=== PATIENT | female | born 1995 | race Caucasian/White ===

== ENCOUNTER 2025-05-27 19:13 | Inpatient (IN) | payer MEDICARE, SELFPAY ==
[2025-05-27] VITALS (10 sets, daily range): BP systolic 108–144; BP diastolic 70–98; BMI 18.7
[2025-05-27 15:29] LABS: Glucose - Point of Care 361 mg/dl (70-99)
[2025-05-27] MEDS: ZOFRAN 4 MG IV ×2 (16:34→17:34)
[2025-05-27 16:45] LABS: Venous Blood Gas B.E. -24.7 mmol/L (-4 to +4); Venous Blood Gas O2 Sat % 56.4 %
[2025-05-27 16:46] LABS: Hematocrit 45.4 % (37.0-47.0); Hemoglobin 15.2 g/dL (12.0-16.0); Mean Corp Hgb Conc. 33.5 g/dL (33.0-37.0); Mean Corpuscular Volume 99.1 fL (81.0-99.0); Nucleated Red Blood Cells % 0 %; Platelet Count 323 10^3/uL (130-400); Red Cell Dist. Width 12.7 % (11.5-14.5)
[2025-05-27] MEDS: NSS 1000 IV ×2 (16:46→17:52)
[2025-05-27 17:00] LABS: HCG, Serum Qualitative Screen Negative
[2025-05-27 17:13] LABS: ALT (SGPT) 50 U/L (0-35); AST (SGOT) 43 U/L (14-36); Albumin 5.7 g/dl (3.5-5.0); Alkaline Phosphatase 119 U/L (38-126); Blood Urea Nitrogen 7 mg/dl (7-17); Calcium 9.5 mg/dl (8.4-10.2); Carbon Dioxide < 5 mmol/L (22-30); Chloride 99 mmol/L (98-107); Estimated Creatinine Clearance 99 ml/min; Glucose 344 mg/dl (70-99); Lipase 300 U/L (23-300); Potassium 5.8 mmol/L (3.5-5.1); Sodium 133 mmol/L (135-145); Total Protein 10.3 g/dl (6.3-8.2); eGFR > 60.00
--- NOTE | 2025-05-27 17:17 | ED.GENMED ---
History of Present Illness
General
Chief Complaint: Abdominal Symptoms
Source: patient and significant other
Time Seen by Provider: 05/27/25 16:30
History of Present Illness
History of Present Illness:
Note:
CHIEF COMPLAINT(S)
Nausea, vomiting, and acid reflux.
HISTORY OF PRESENT ILLNESS
The patient is a 30-year-old female with a known history of diabetes mellitus, presenting with symptoms starting around 3 AM today. She reports experiencing severe acid reflux which she states is unusual for her. Approximately four hours later, she
began experiencing nausea and vomiting, described as progressive and occurring at intervals of about every 20 minutes by 11:30 AM. The vomiting is accompanied by persistent dry heaving and coughing, which the patient describes as straining her
organs and causing head pain. She was previously admitted to [facility] last month for pancreatitis, which she attributes to poorly managed diabetes. The patient reports taking better care of her diabetes since then, including the use of
insulin. However, she admits to recent irregular insulin usage, correlating it with decreased food intake and elevated blood sugar levels. On arrival, ondansetron provided significant relief for her nausea. The patient reports her pain today is less
intense than during her pancreatitis episode, describing it currently as a 4 out of 10 on the pain scale.
PAST MEDICAL AND SURGICAL HISTORY
The patient reported a recent hospital admission for pancreatitis, attributed to complications from diabetes mellitus. She also mentioned a history of asthma and was previously informed of having diabetic ketoacidosis.
CHRONIC MEDICAL CONDITIONS SIGNIFICANTLY AFFECTING CARE
Diabetes Mellitus
Asthma
SOCIAL DETERMINANTS AFFECTING HEALTH
The patient has a history of smoking, which together with diabetes, increases her risk factors significantly.
REVIEW OF SYSTEMS
- Gastrointestinal: Severe acid reflux, nausea, vomiting.
- Neurological: Head pain secondary to persistent coughing.
- Respiratory: Persistent dry heaving and coughing.
PHYSICAL EXAM
General: Alert, in no acute distress.
Skin: Warm, dry.
Head: Normocephalic, atraumatic.
Neck: Supple, trachea midline.
Eye, ears, nose, mouth, throat: Oral mucosa dry.
Cardiovascular: Tachycardic, no edema.
Respiratory: Lungs clear to auscultation, respirations are non-labored.
Gastrointestinal: Moderate tenderness in the epigastric region, abdomen nondistended.
Back: Normal range of motion, normal alignment.
Musculoskeletal: Normal range of motion, normal strength.
Neurological: Alert and oriented to person, place, time, and situation. No focal neurological deficit observed.
Psychiatric: Cooperative, appropriate mood and affect.
PROBLEM LIST
- Acute: Nausea, vomiting, acid reflux, dehydration.
- Chronic: Diabetes Mellitus, Asthma.
PLAN
- Hospital admission for further observation and management of suspected diabetic ketoacidosis.
- Initiation of intravenous fluids and insulin therapy.
- Continue ondansetron for symptomatic relief of nausea and vomiting.
- Monitor blood sugar levels closely.
- Plan for possible dietary and insulin regimen adjustments.
- Advice on smoking cessation and education on comprehensive diabetes management were provided.
DIFFERENTIAL DIAGNOSIS
The differential diagnosis includes, in no particular order and is not limited to:
1. Diabetic Ketoacidosis
2. Acute Pancreatitis
3. Gastroparesis
4. Gastroesophageal Reflux Disease (GERD)
5. Viral Gastroenteritis
6. Alcoholic Ketoacidosis
7. Hyperemesis Gravidarum (if applicable)
8. Adrenal Insufficiency
9. Myocardial Infarction
10. Electrolyte Imbalance
EKG
My independent EKG interpretation is:
- Time of EKG: Not specified
- Rhythm: Normal sinus rhythm
- Heart Rate: 102 bpm
- NJ Interval: Normal
- QRS Duration: Normal
- QT Interval: Not specified
- Linn: Normal
- ST Segment: No changes observed
- T Wave: No abnormalities observed
- Arrhythmias: No arrhythmias detected
Disposition:
SUMMARY OF ENCOUNTER
The patient, a 30-year-old female with a history of diabetes mellitus, presented to the emergency department with intractable vomiting and elevated blood glucose levels. She had not been managing her diabetes adequately and had a recent
hospitalization for pancreatitis at an outside facility. Upon evaluation, the patient was found to have diabetic ketoacidosis (DKA). Laboratory tests showed leukocytosis with a count of 15.9, normal lipase, metabolic acidosis with a pH of 6.93, PCO2
of 35, an anion gap, bicarbonate level of less than five, blood glucose of 344, and a lactate level of 2.3. A test was negative. The patient was administered aggressive intravenous fluids and an insulin drip with bolus to manage DKA. Her
nausea improved significantly with treatment, and reflux symptoms were managed with pantoprazole and sucralfate as she could tolerate oral intake.
DISPOSITION
Admit
ASSESSMENT
The patient is experiencing diabetic ketoacidosis, likely due to poorly managed diabetes leading to intractable vomiting, elevated blood glucose, and an anion gap metabolic acidosis.
EMERGENCY TREATMENTS ADMINISTERED
Aggressive intravenous fluids, insulin drip with bolus, pantoprazole, sucralfate.
PLAN
The patient will be admitted for further management of diabetic ketoacidosis with continued monitoring of blood glucose levels and acid-base balance. Her treatment plan includes ongoing insulin therapy, with adjustments as necessary, and additional
supportive care for nausea and reflux symptoms.
INDEPENDENT REVIEW OF LABS AND INTERPRETATION OF TESTS
My independent review of the Complete Blood Count (CBC) is leukocytosis with a WBC count of 15.9. My independent review of the Venous Blood Gas (VBG) shows metabolic acidosis with a pH of 6.93 and PCO2 of 35. My independent review of the
Comprehensive Metabolic Panel (CMP) indicates an anion gap metabolic acidosis, a bicarbonate level of less than five, and a blood glucose level of 344. My independent review of the test is negative.
MEDICATION RECONCILIATION
Pantoprazole and sucralfate were administered to manage reflux symptoms. An insulin drip with bolus was initiated for the management of diabetic ketoacidosis.
MEDICAL DECISION MAKING
- Number and Complexity of Problems Addressed: Chronic conditions affecting care include diabetes mellitus. Differential diagnoses considered: Diabetic Ketoacidosis, Acute Pancreatitis, Gastroparesis, Gastroesophageal Reflux Disease (GERD), Viral
Gastroenteritis, Alcoholic Ketoacidosis, Hyperemesis Gravidarum (if applicable), Adrenal Insufficiency, Myocardial Infarction, Electrolyte Imbalance.
- Data:
Category 1: Lab tests reviewed include CBC, VBG, CMP, lactate, test, and lipase.
Category 2: My independent interpretation of the EKG shows a normal sinus rhythm with a heart rate of 102 bpm, normal NJ and QRS intervals, no ST segment changes or T wave abnormalities, and no arrhythmias detected.
- Risk: High risk due to diabetic ketoacidosis, metabolic acidosis, and the need for aggressive management with insulin drip and intravenous fluids. The patient requires hospital admission for further treatment and monitoring.
DIAGNOSIS
1. Diabetic Ketoacidosis (DKA) - E10.10
2. Type 1 Diabetes Mellitus with Unspecified Complications - E10.8
3. Metabolic Acidosis - E87.2
Past History
Past History
ED Past Medical History: Asthma, NIDDM and Psychiatric (Anxiety)
ED Past Surgical History: None
Social History
Tobacco: Smoker
Alcohol: Occasional
Personal: Other (Seperated)
Living: with family
Phy Exam
Physical Exam
Physical Exam:
.
Course
Orders/Labs/Results
Orders:
Orders
05/27/25 16:28
Electrocardiogram (*1) Urgent
Reason for Study: Abdominal Pain
EKG- Treatment ONCE
IV Insert/Care/Rem.- Treatment PRN
Urinalysis Reflex To Culture Urgent
Date Specimen was Collected: 05/27/25
Time Specimen was Collected: 16:28
Test Result ONCE
05/27/25 16:31
Ondansetron Injectable [Zofran] 4 mg .ROUTE .STK-MED ONE
05/27/25 16:34
Ondansetron Injectable [Zofran] 4 mg IV NOW STA
05/27/25 16:35
B-Hydroxybutyrate Urgent
Complete Blood Count/With Diff Urgent
Comprehensive Metabolic Panel Urgent
HCG, Serum Qualitative Screen Urgent
Comment: Notify provider if positive test present
Lactic Acid Urgent
Lipase Urgent
Venous Blood Gas Urgent
%Oxygen/Room Air: 96
05/27/25 16:46
0.9% Sodium Chloride 1000 ml [Nss] 1,000 ml IV BOLUS
05/27/25 17:13
0.9% Sodium Chloride 1000 ml [Nss] 1,000 ml IV BOLUS
Pantoprazole [Protonix IV] 80 mg IV NOW STA
Sucralfate Suspension [Carafate Suspension] 1 gm PO NOW STA
05/27/25 17:14
Insulin Human Regular [Novolin R] 5 units IV NOW STA
Reg Insulin 100 Units/100 ml [Novolin R Insulin Infusion] 100 units in 100 ml IV NOW
05/27/25 17:15
Bedside Glucose- Treatment Q1H
IV Insert/Care/Rem.- Treatment PRN
Basic Metabolic Panel Q2H
05/27/25 19:15
Basic Metabolic Panel Q2H
05/27/25 21:15
Basic Metabolic Panel Q2H
Abnormal Lab Results
05/27/25 05/27/25
15:27 16:35
WBC 15.9 H 10^3/uL
(4.8-10.8)
MCV 99.1 H fL
(81.0-99.0)
MCH 33.2 H pg
(27.0-31.0)
MPV 10.5 H fL
(7.4-10.4)
Abs Immat Gran (auto) 0.1 H 10^3/uL
(0-0.05)
Absolute Neuts (auto) 13.3 H 10^3/uL
(1.4-6.5)
Absolute Monos (auto) 0.8 H 10^3/uL
(0.1-0.6)
Immature Gran % 0.6 H %
(0-0.5)
Neutrophils % 83.5 H %
(42.2-75.2)
Lymphocytes % 10.2 L %
(20.5-51.1)
VBG pH 6.93 L*
(7.32-7.43)
VBG HCO3 7.3 L mmol/L
(22-27)
Sodium 133 L mmol/L
(135-145)
Potassium 5.8 H mmol/L
(3.5-5.1)
Carbon Dioxide < 5 L* mmol/L
(22-30)
Glucose 344 H mg/dl
(70-99)
Lactic Acid 2.3 H mmol/L
(0.7-2.0)
AST 43 H U/L
(14-36)
ALT 50 H U/L
(0-35)
Total Protein 10.3 H g/dl
(6.3-8.2)
Albumin 5.7 H g/dl
(3.5-5.0)
POC Glucose 361 H mg/dl
(70-99)
05/27/25 16:35
Vital Signs
Initial and Last Documented VS:
Initial Vital Signs
Temp Pulse Resp BP Pulse Ox
97.7 F 114 18 144/97 100
05/27/25 15:29 05/27/25 15:29 05/27/25 15:29 05/27/25 15:29 05/27/25 15:29
Last Documented Vital Signs
Temp Pulse Resp BP Pulse Ox
97.7 F 97 20 122/85 100
05/27/25 15:29 05/27/25 16:41 05/27/25 16:41 05/27/25 16:40 05/27/25 16:41
*Pulse Oximetry
SaO2: 100
Oxygen Mode of Delivery: Room air
Patient hypoxic: no
*Cheese Cutter Interpretation
Rate: tachycardiac
Interpretation: abnormal
Rhythm: sinus
*Critical Care Note
Total Time (30-74mins, 75-104mins- exclusive of procedures): 35 minutes
Data Reviewed
Prescriptions/Medications Considered But Not Given:
Considered antibiotics but no clinical indication for acute infection pending urine
ED Attending Note
-
Portions of this chart may have been created with voice recognition software.� Occasional wrong word or��sound alike� substitutions may have occurred due to the inherent limitations of voice recognition software.
Discharge Plan
Departure
Patient Disposition: Admit
Date of Disposition: 05/27/25
Time of Disposition: 17:18
Admit to: ICU
Presentation/result/management discussed w/ accepting MD/DO: Hospitalist
Discharge Problem:
Diabetic ketoacidosis
Prescriptions:
No Action
ondansetron HCl [Zofran] 4 mg Tablet
4 mg PO Q6HPRN PRN (Reason: nausea)
albuterol sulfate [ProAir HFA] 90 mcg/actuation Hfa Aerosol Inhaler
2 puff INHALATION R BID
insulin asp prt-insulin aspart [Novolog Mix 70-30 U-100 Insuln] 100 unit/mL (70-30) Solution
5 sliding scale dose SC AC
Referrals:
UNKNOWN - PT DOES,NOT KNOW [Family Provider]
Interventions
Interventions:
*Risk Screen - Suicide Last Done: 05/27/25 15:29
*General Assessment Last Done: 05/27/25 16:42
*Neglect/Abuse Screening Last Done: 05/27/25 15:29
*ED COVID-19 Vaccine History Last Done: 05/27/25 15:29
*ED Influenza Vaccine History Last Done: 05/27/25 15:29
[facility] Fall Risk Assessment Tool Last Done: 05/27/25 16:42
DZ-Conhyb-Ouzoqrqyqp Assessment Last Done: 05/27/25 16:42
Discharge Date and Time
Print Language: DIVEHI
--- NOTE | 2025-05-27 17:28 | HPS.HSE ---
Family Physician
-
Family Physician: NOT KNOW UNKNOWN - PT DOES
Chief Complaint
-
Nausea, vomiting, headache
History of Present Illness
30-year-old female who states she is complaining of severe acid reflux which began around 3 AM with nausea and vomiting about every 20 minutes. She reports the vomiting had caused headache. She states she was diagnosed age 28 with diabetes with an
A1c around 7 she briefly took insulin but then ran out and never followed up until 1 month ago at [facility] when she was diagnosed with acute pancreatitis due to no current job or medical insurance she was given insulin 70/30 she has past medical
history of pancreatitis She did have previous admission to [facility] 1 month ago for pancreatitis due to poorly managed diabetes. 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 She reports she has been using her
insulin and attempting to decrease carbohydrate intake. She states she has been taking 7030 of NovoLog 5 units once a day she does report checking her sugars which are usually high in the 200s. In ER she presented with blood sugar of 344 with
anion gap corrected around 24. secondary to uncontrolled diabetes, IDDM adult onset age 28
Medical History
Past Medical History
Past Medical History: Reports Other
Additional Past Medical History:
Type I DM
GERD
Asthma
Anxiety
Prior smoker
Past Surgical History: Reports None
Social History
Tobacco: Smoker (Half a pack a day)
Alcohol: Occasional (2-3 times during the week 3 glasses of wine or 3 beers 1 glass of wine or beer Friday and Friday total 11 drinks a week)
Drug: Marijuana (Edible)
Personal: Other (Boyfriend)
Living: With Family (6-year-old son and boyfriend)
Employment: Not Employed
Family History
Family History: Not pertinent
Allergies / Home Medications
Allergies reflects when Allergies were last updated in MePlease.
Home Medications with original date entered in MePlease
Allergy/Medication List:
Allergies
Allergy/AdvReac Type Severity Reaction Status Date / Time
hepatitis B virus vaccine Allergy Mild Unknown Verified 05/27/25 15:34
Home Medications
albuterol sulfate 90 mcg/actuation aerosol inhaler 2 puff inhalation R BID Lung/Breathing Issues 05/27/25
insulin aspar prt-insulin aspart 100 unit/mL (70-30) subcutaneous soln (Novolog Mix 70-30 U-100 Insuln) 5 unit SC BID@08,17 Diabetes 05/27/25
ondansetron HCl 4 mg tablet 4 mg PO Q6HPRN PRN nausea 05/27/25
Review of Systems
-
History Source: Patient
A 12 point ROS was completed and negative except as noted: Yes
Constitutional: Denies Fever
EENT: Denies Sore Throat or Runny Nose
Respiratory: Denies Cough or Trouble Breathing
Cardiac: Denies Chest Pain or Syncope
Abdomen/GI: Reports Abdominal Pain, Nausea and Vomiting; Denies Diarrhea or Constipated
: Reports Frequency; Denies Dysuria, Flank Pain, Incontinence, Difficulty Voiding or Urgency
Musculoskeletal: Denies Joint Pain or Edema
Skin: Denies Itching or Rash
Neurological: Reports Headache; Denies Dizzy or Weakness
Endocrine: Reports Polyuria and Polydipsia
Hematologic/Lymphatic: Reports No Symptoms
Psych: Reports Other (Restless, anxious)
Physical Exam
Vital Signs
Vital Signs
Temp Pulse Resp BP Pulse Ox
97.7 F 97 20 122/85 100
05/27/25 15:29 05/27/25 16:41 05/27/25 16:41 05/27/25 16:40 05/27/25 17:21
Physical Exam
General: Conversant and Other (Restless and anxious on exam)
HEENT: NormoCephalic, Anicteric, PERRLA, [place] Conjunctivae, No Ptosis and Other (Dry oral mucosa)
Respiratory: Clear; No Wheezes, Rales or Rhonchi
Cardiac: S1/S2 and Regular Rhythm; No Murmur, Rub or Gallop
Breast: Deferred by me
GI: Soft, Non Tender, Non Distended, Normal Bowel Sounds and No Hepatosplenomegaly
Rectal: Deferred by Provider
Genito-urinary: Deferred by me
Musculoskeletal: No Clubbing, No Cyanosis and No Edema
Skin: Warm and Dry; No Rash or Jaundice
Neuro: AO x 3, No Motor Deficits, Nonfocal/grossly intact, Cranial Nerves Intact and No Sensory Deficits; No Facial Droop, Tremors or Sedated
Psych: Anxious
Laboratory Results
-
05/27/25 16:35
Laboratory Results
Lactic Acid 2.3 mmol/L (0.7-2.0) H 05/27/25 16:35
Total Bilirubin 1.0 mg/dl (0.2-1.3) 05/27/25 16:35
AST 43 U/L (14-36) H 05/27/25 16:35
ALT 50 U/L (0-35) H 05/27/25 16:35
Alkaline Phosphatase 119 U/L (38-126) 05/27/25 16:35
Lipase 300 U/L (23-300) 05/27/25 16:35
Data Reviewed
-
Lab Data: Labs Reviewed by me
Impression/Plan
-
Impression/plan:
Admit to ICU
DKA Dx adult onset question type 1.5 age 28
Initial blood sugar 344 anion gap 24.8
IV NSS 2 L given in ER
Patient given 5 units IV insulin
-Continue insulin drip
IV Protonix, Zofran, Carafate was given for vomiting
- Consult para educator
Consult case management patient states has paperwork for Medicaid to fill out
#Alcohol use disorder
Patient drinks 2-3 times during the week 3 glasses of wine or 3 glasses beer and 1 glass of wine or beer on the weekends totaling 11 drinks a week
MSAS screening protocol
- IV thiamine IV folate
#Active smoker
- Half a pack a day
Nicotine patch 14 mg
#Anxiety with use of medical marijuana
-Patient reports uses medical marijuana edibles
#GERD
-Continue Protonix
#Asthma�no acute exacerbation
Continue albuterol as needed
DVT prophylaxis
Subcu Lovenox
Full code
[2025-05-27] MEDS: CARAFATE SUSPENSION 1 GM PO (17:31)
--- NOTE | 2025-05-27 17:31 | W.PN.UPDATE ---
Update Note
Progress Note Update
This note serves as an addendum to the H&P by butt sawyer Anastasiia Barbosa
HPI
30F HX IDDM HX DKA, recent admission @ [facility] for pancreatitis attributed to complications from diabetes mellitus, asthma seen at ER:
- Onset of symptoms starting around 3 AM today reports experiencing severe acid reflux which she states is unusual for her.
- Later she began experiencing nausea and vomiting, described as progressive and occurring at frequent intervals
- vomiting is accompanied by persistent dry heaving and coughing
- Partial compliance with insulin - use daily in stead of BID
Previously admitted to [facility] last month for pancreatitis, which she attributes to poorly managed diabetes.
SHX;
Use 9-10 cans of beer and 9-10 glassed of wine per week
Relevant VS
Temp Pulse Resp BP Pulse Ox
97.7 F 97 20 122/85 100
05/27/25 15:29 05/27/25 16:41 05/27/25 16:41 05/27/25 16:40 05/27/25 17:21
05/27/25
15:29 05/27/25
16:40 05/27/25
16:41
Temp 97.7 F
Pulse 114 97
Resp Rate 18 20
Blood pressure 144/97 122/85
SaO2 100
Oxygen Mode of Delivery Room air
PE
Gen: alert, coherent, no toxic
HEENT: anicteric
Neck: supple
Lungs: CTA
Cor: RRR S1 S2
Abdomen:�soft abdomen , NT, ND, NG
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
MS:no edema
Psych: anxious, pleasant
Relevant data�
05/27/25
16:35
WBC 15.9 H
Sodium 133 L
Potassium 5.8 H
Chloride 99
Carbon Dioxide < 5 L*
Creatinine 0.6
eGFR > 60.00
Glucose 344 H
Lactic Acid 2.3 H
Total Bilirubin 1.0
AST 43 H
ALT 50 H
Alkaline Phosphatase 119
Albumin 5.7 H
Lipase 300
HCG, Qual Negative
B-Hydroxybutyrate Pending
05/27/25
16:35
VBG pH 6.93 L*
VBG pCO2 35
VBG pO2 41
VBG HCO3 7.3 L
VBG O2 Sat (Pablo) 56.4
NO [facility] hospitalist admission:
ASSESSMENT & PLAN
Severe DKA due to partial compliance with 70-30 insulin ( use 70-30 daily instead of BID)
Severe AG MA @ 26 + Lactate acidosis
Pending BHB
Dehydration
HX IDDM with HX DKA
- DKA protocol as below
- Agree with Insulin gtt
- Hold NPH for now
- Fluid resuscitation IV NS
- PRN anti emetics
- FU BHB
- UA
- AccuCheck and BMP guided by DKA protocol
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
Suspect mild - mod ETOH use disorder
Use medical Marijuana
HX Anxiety
Currently in between Jobs
- OBS EtOH WDS but suspect low risk
DVT Px: LMWH
Full code
ICU
Total Critical Care Time__40___ minutes.
I was immediately available to the patient and staff. I personally examined, reviewed labs, diagnostic images/reports, interpretations, treatment plans, discussed patient care with other providers and family or caregivers (if patient is unable to
make decisions), entered orders as appropriate and documented the medical record.
[2025-05-27] MEDS: PROTONIX IV 80 MG IV (17:33)
[2025-05-27 17:41] LABS: Glucose - Point of Care 330 mg/dl (70-99)
[2025-05-27] MEDS: NOVOLIN R INSULIN INFUSION IV (17:49)
[2025-05-27] MEDS: NOVOLIN R 5 UNITS IV (17:50)
[2025-05-27] MEDS: ATIVAN 1 MG IV (18:32)
[2025-05-27 18:56] LABS: Glucose - Point of Care 188 mg/dl (70-99)
[2025-05-27] MEDS: NOVOLIN R INSULIN INFUSION 100 IV (19:08)
[2025-05-27 19:55] LABS: INR 1.13; PT 14.7 Sec (11.4-14.6)
[2025-05-27 19:56] LABS: APTT 22.4 Sec (23.4-35.0)
[2025-05-27 20:02] LABS: Glucose - Point of Care 94 mg/dl (70-99)
[2025-05-27 20:06] LABS: Blood Urea Nitrogen 6 mg/dl (7-17); Calcium 7.9 mg/dl (8.4-10.2); Carbon Dioxide < 5 mmol/L (22-30); Chloride 109 mmol/L (98-107); Estimated Creatinine Clearance 99 ml/min; GGTP 145 U/L (12-43); Glucose 110 mg/dl (70-99); Magnesium 1.9 mg/dl (1.6-2.3); Potassium 4.7 mmol/L (3.5-5.1); Sodium 137 mmol/L (135-145); eGFR > 60.00
[2025-05-27 21:00] LABS: Glucose - Point of Care 76 mg/dl (70-99)
[2025-05-27] MEDS: DILAUDID 1 MG IV (21:08)
[2025-05-27 21:28] LABS: Glucose - Point of Care 90 mg/dl (70-99)
[2025-05-27] MEDS: D5/0.45%NSS with KCL 20 MEQ 1000 IV (22:04)
[2025-05-27] MEDS: NICODERM TRANSDERMAL 14 MG TRANSDERM (22:11)
[2025-05-27 22:16] LABS: Glucose - Point of Care 126 mg/dl (70-99)
[2025-05-27] MEDS: TYLENOL 650 MG PO (22:24)
[2025-05-27 22:46] LABS: Blood Urea Nitrogen 5 mg/dl (7-17); Calcium 8.3 mg/dl (8.4-10.2); Carbon Dioxide < 5 mmol/L (22-30); Chloride 109 mmol/L (98-107); Estimated Creatinine Clearance 99 ml/min; Glucose 131 mg/dl (70-99); Potassium 5.4 mmol/L (3.5-5.1); Sodium 135 mmol/L (135-145); eGFR > 60.00
[2025-05-27 23:00] LABS: Glucose - Point of Care 216 mg/dl (70-99)
[2025-05-27 23:57] LABS: Glucose - Point of Care 269 mg/dl (70-99)
[2025-05-27] MEDS: THIAMINE INJECTION 200 MG IV (23:58)
[2025-05-28] VITALS (24 sets, daily range): BP systolic 91–117; BP diastolic 56–85; BMI 18.2
--- NOTE | 2025-05-28 | PTCARENOTE ---
systems reviewed, Ox3, TIWARI, abdominal pain 08/02, Sinus tach, + pulses, RA sats 100%, tachypneic @ x's, BSx4 denies nausea, BSCx1 yellow output, skin per worklist, 18 LAC, 20 RAC, D5 1/2 NS c 20 meq K 150ml/hr, insulin gtt per worklist, Q1 accu
checks, urine and labs sent, call hook within reach, otherwise refer to documentation
[2025-05-28 00:22] LABS: Urine Character Clear (Clear)
[2025-05-28 00:56] LABS: Urine Squamous Cell >30 /LPF (Few)
[2025-05-28 00:58] LABS: Glucose - Point of Care 242 mg/dl (70-99)
[2025-05-28 01:01] LABS: Urine Red Blood Cell 0-2 /HPF (0-2)
[2025-05-28 01:57] LABS: Glucose - Point of Care 247 mg/dl (70-99)
[2025-05-28 02:30] LABS: Hematocrit 37.9 % (37.0-47.0); Hemoglobin 12.4 g/dL (12.0-16.0); Mean Corp Hgb Conc. 32.7 g/dL (33.0-37.0); Mean Corpuscular Volume 100.3 fL (81.0-99.0); Nucleated Red Blood Cells % 0 %; Platelet Count 240 10^3/uL (130-400); Red Cell Dist. Width 12.7 % (11.5-14.5)
[2025-05-28 02:33] LABS: Blood Urea Nitrogen 5 mg/dl (7-17); Calcium 7.9 mg/dl (8.4-10.2); Carbon Dioxide < 5 mmol/L (22-30); Chloride 110 mmol/L (98-107); Estimated Creatinine Clearance 99 ml/min; Glucose 233 mg/dl (70-99); Potassium 5.0 mmol/L (3.5-5.1); Sodium 132 mmol/L (135-145); eGFR > 60.00
[2025-05-28 02:59] LABS: Glucose - Point of Care 271 mg/dl (70-99)
--- NOTE | 2025-05-28 03:15 | PTCARENOTE ---
system reviewed, refer to worklist for insulin gtt, pt reports pain being tolerable, labs sent, no changes in previous assessment, otherwise refer to documentation.
[2025-05-28 03:55] LABS: Glucose - Point of Care 273 mg/dl (70-99)
[2025-05-28] MEDS: D5/0.45%NSS with KCL 20 MEQ 1000 IV ×3 (04:57→17:48)
[2025-05-28 05:02] LABS: Glucose - Point of Care 291 mg/dl (70-99)
[2025-05-28 06:06] LABS: Glucose - Point of Care 252 mg/dl (70-99)
[2025-05-28] MEDS: TYLENOL 650 MG PO ×3 (06:09→21:23)
[2025-05-28 06:58] LABS: Glucose - Point of Care 275 mg/dl (70-99)
[2025-05-28 07:44] LABS: Blood Urea Nitrogen 4 mg/dl (7-17); Calcium 8.5 mg/dl (8.4-10.2); Carbon Dioxide 11 mmol/L (22-30); Chloride 108 mmol/L (98-107); Estimated Creatinine Clearance 97 ml/min; Glucose 256 mg/dl (70-99); Potassium 4.5 mmol/L (3.5-5.1); Sodium 129 mmol/L (135-145); eGFR > 60.00
[2025-05-28] MEDS: NSS (PRESERVATIVE FREE) 10 ML IV (07:53)
[2025-05-28] MEDS: THIAMINE INJECTION 200 MG IV ×2 (07:53→15:14)
[2025-05-28] MEDS: PROTONIX IV 40 MG IV (07:53)
[2025-05-28] MEDS: NICODERM TRANSDERMAL 14 MG TRANSDERM (07:53)
[2025-05-28] MEDS: FOLVITE 1 MG PO (07:54)
--- NOTE | 2025-05-28 07:58 | CON.INTV ---
Consultation
Consultation Request
Date/Time Consultation Requested: 05/28/25
Date/Time Consultation Performed: 05/28/25
Performing Provider: Erica
Reason for Consultation: DKA
Medical History
-
History of Present Illness:
30-year-old female with previous history of diabetes presenting with severe acid reflux which began around 3 AM with nausea and vomiting about every 20 minutes. She was recently diagnosed with diabetes in the last 2 years but has not been compliant
with her care or treatment. She was recently admitted at [facility] for acute pancreatitis. She has complications with access to care regarding medical insurance and she has no employment. In ER, she had notable blood sugar of 344 with high anion
gap metabolic acidosis, she is admitted to ICU for insulin drip.
Past Medical History
Past Medical History: Other (see list below)
Social History
Tobacco: Smoker
Alcohol: Daily
Drug: Marijuana
Allergies / Home Medications
Allergies
Allergy/AdvReac Type Severity Reaction Status Date / Time
hepatitis B virus vaccine Allergy Mild Unknown Verified 05/27/25 15:34
Home Medications
�Medication �Instructions �Recorded �Confirmed �Last Taken �Type
albuterol sulfate 90 mcg/actuation 2 puff inhalation R BID 05/27/25 05/27/25 Unknown History
aerosol inhaler Lung/Breathing Issues
insulin aspar prt-insulin aspart 5 unit SC BID@08,17 Diabetes 05/27/25 05/27/25 Unknown History
100 unit/mL (70-30) subcutaneous
soln (Novolog Mix 70-30 U-100
Insuln)
ondansetron HCl 4 mg tablet 4 mg PO Q6HPRN PRN nausea 05/27/25 05/27/25 Unknown History
Review of Systems
Vitals / Labs / Diagnostic Testing
Vital Signs
Temp Pulse Resp BP Pulse Ox
98.9 F 100 18 100/72 99
05/28/25 07:11 05/28/25 07:38 05/28/25 07:38 05/28/25 06:00 05/28/25 07:38
Lab Data
05/28/25 02:04
Laboratory Results
05/27/25
19:30
PT 14.7 H
INR 1.13
APTT 22.4 L
Diagnostic Testing:
Physical Exam
-
HEENT: Normocephalic, Anicteric and Moist Mucous Membranes
Cardiovascular: S1/S2 and Regular Rhythm
Respiratory: Clear and Non-Labored Respirations
GI: Soft, Non Distended and Non Tender
Neurology: Awake, Alert, Oriented and No Motor Deficits
Skin: Warm, Dry and Good Color
General: Comfortable and Other (NAD)
Assessment
-
30-year-old female with previous history of diabetes presenting with severe acid reflux which began around 3 AM with nausea and vomiting about every 20 minutes. She was recently diagnosed with diabetes in the last 2 years but has not been compliant
with her care or treatment. She was recently admitted at [facility] for acute pancreatitis. She has complications with access to care regarding medical insurance and she has no employment. In ER, she had notable blood sugar of 344 with high anion
gap metabolic acidosis, she is admitted to ICU for insulin drip.
DKA due to noncompliance
Leukocytosis
Hyponatremia
HAGMA
Hypocalcemia
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
Type I DM
GERD
Asthma
Anxiety
Smoker (Half a pack a day)
Alcohol: Occasional (2-3 times during the week 3 glasses of wine or 3 beers 1 glass of wine or beer Friday and Friday total 11 drinks a week)
Drug: Marijuana (Edible)
Plan
DKA, admitting BS elevated, HAGMA noted
Started on insulin drip, can wean today following protocol, start D5 IVFs
Consult diabetic nurse for insulin recommendations
Can restart diet once able to bridge
H/o poorly controlled diabetes, hopeful transition to home meds
HbA1c pending
Admits triggers include noncompliance, poor access to treatment
May consider CLAUDETTE doyle for [facility]uregui referral
Diet transition following DKA protocol
GI ppx: PPI for active GERD complaints
Improving, can continue as OP
Hemodynamically stable, not requiring pressors.
No prior h/o cardiac disease
Monitor on tele
Oxygen needs: Stable on RA
Asthma noted, on albuterol PRN
Smoking hx includes 1/2 PPD, smoking cessation encouraged
Prior CXR negative in past
Creat at baseline, follow UO
Acid/base status: AGMA 2/2 DKA, follow until AG <12
No signs/symptoms suspicious for infectious etiology at this time.
Will observe off antibiotics for now.
Follow fever trend, WBC count.
DVT ppx SCDs
Can transfer to floors when off insulin gtt, we will sign off upon transfer
Diagnostic Data
Chest X-Ray: 02/23/22-No acute cardiopulmonary process.
CT Scan:
Echo:
PFT's:
Reports and relevant images were personally reviewed.
Critical Care time 50 mins -- The patient is admitted for acute critical illness for the treatment of vital organ failure and/or prevention of further life-threatening conditions. Total care includes time spent in review of history, physical exam,
medications, hemodynamic/ventilator parameters, laboratory data, imaging and discussion with house staff, pharmacy, respiratory therapy, electro mechanical designer, and nursing.
[2025-05-28 08:01] LABS: Glucose - Point of Care 200 mg/dl (70-99)
[2025-05-28] MEDS: ATIVAN 1 MG PO (08:03)
--- NOTE | 2025-05-28 08:13 | PTCARENOTE ---
Rec'd pt at 0700. Pt AAOx3, assisted OOB to BSC, voiding yellow urine. Monitor SR/ST. Lungs CTA. +BS, abd soft/nt. Pt c/o intermittent nausea, not requiring meds at this time per pt. Insulin gtts infusing with Q1hr accuhecks per protocol. Pt anxious
and tearful, PRN Ativan given per MSAS protocol. Safe/quiet environment maintained.
[2025-05-28 09:01] LABS: Glucose - Point of Care 211 mg/dl (70-99)
--- NOTE | 2025-05-28 09:25 | CM ---
cm consult received
Chart reviewed and spoke with patient at ICU bedside
She lives in a multilevel home with her 6 yo son
Independent with ADLs and ambulation
Son's father is currently taking care of him now
no DME
Discussed CM consult and referral to [facility]
Pt declined the referral' I don't need help'
Pt is agreeable to keep [facility] contact info if she changes her mind or has more questions
PCP Dr. Brandy Azul at [facility] P[facility]
RX yes
Pharmacy in [place]
no hx of VN nor SNF
DCP is to return home
Her boyfriend Jaden Mixon can provide transportation at [place]
CM will continue to follow up for any dcp needs
[2025-05-28 10:04] LABS: Glycohemoglobin (HgbA1c) 9.9 % (4.0-5.9)
[2025-05-28 10:06] LABS: Glucose - Point of Care 221 mg/dl (70-99)
[2025-05-28 11:04] LABS: Glucose - Point of Care 213 mg/dl (70-99)
[2025-05-28 12:08] LABS: Glucose - Point of Care 183 mg/dl (70-99)
[2025-05-28 12:09] LABS: Blood Urea Nitrogen 4 mg/dl (7-17); Calcium 8.6 mg/dl (8.4-10.2); Carbon Dioxide 16 mmol/L (22-30); Chloride 107 mmol/L (98-107); Estimated Creatinine Clearance 97 ml/min; Glucose 200 mg/dl (70-99); Sodium 130 mmol/L (135-145); eGFR > 60.00
[2025-05-28 12:10] LABS: Potassium 4.0 mmol/L (3.5-5.1)
--- NOTE | 2025-05-28 12:10 | PTCARENOTE ---
No changes in assessment. Pt sleeping when undisturbed.
[2025-05-28 13:07] LABS: Glucose - Point of Care 184 mg/dl (70-99)
--- NOTE | 2025-05-28 13:36 | W.PN.HOSP.TC ---
Today's Communication/Plan
-
Assessment / Plan
Assessment / Plan
DKA
Insulin drip
IV fluids
Follow the gap
Transition once gap is closed by 2 BMPs
Will transition plan to start home long and short acting insulin
Alcohol use disorder
Thiamine folate
Ativan
MSAS
Active smoker
- Half a pack a day
Nicotine patch 14 mg
Anxiety with use of medical marijuana
-Patient reports uses medical marijuana edibles
GERD
-Continue Protonix
Asthma�no acute exacerbation
Continue albuterol as needed
Anticipated Discharge: 24 - 48 hours
Subjective/Interval History
-
Date of Service: May 28, 2025
Exam. Resting in bed. On IV insulin drip IV fluids
Objective Data
-
Labs:
Laboratory Results
05/28/25 05/28/25 05/28/25
02:04 06:05 10:05
WBC 13.9 H
Hgb 12.4
Hct 37.9
Plt Count 240 D
Sodium 132 L 129 L Cancelled
Potassium 5.0 4.5 Cancelled
Chloride 110 H 108 H Cancelled
Carbon Dioxide < 5 L* 11 L* Cancelled
BUN 5 L 4 L Cancelled
Creatinine 0.6 0.5 L Cancelled
Glucose 233 H 256 H Cancelled
Calcium 7.9 L 8.5 Cancelled
05/28/25 05/28/25
11:18 15:00
WBC
Hgb
Hct
Plt Count
Sodium 130 L Pending
Potassium 4.0 Pending
Chloride 107 Pending
Carbon Dioxide 16 L Pending
BUN 4 L Pending
Creatinine 0.5 L Pending
Glucose 200 H Pending
Calcium 8.6 Pending
Vital Signs:
Vital Signs
Temp Pulse Resp BP Pulse Ox
98.2 F 94 23 92/64 99
05/28/25 12:10 05/28/25 13:00 05/28/25 13:00 05/28/25 13:00 05/28/25 13:00
I&O
05/27/25 05/28/25 05/29/25
06:59 06:59 06:59
Intake Total 2189 / 2343 1069 / 1069
Output Total 400 / 400
Balance 2189 / 2343 669 / 669
[2025-05-28 14:09] LABS: Glucose - Point of Care 175 mg/dl (70-99)
[2025-05-28 15:11] LABS: Glucose - Point of Care 166 mg/dl (70-99)
[2025-05-28] MEDS: ZOFRAN 4 MG IV (15:14)
[2025-05-28 15:59] LABS: Blood Urea Nitrogen 4 mg/dl (7-17); Calcium 8.9 mg/dl (8.4-10.2); Carbon Dioxide 13 mmol/L (22-30); Chloride 109 mmol/L (98-107); Estimated Creatinine Clearance 97 ml/min; Glucose 167 mg/dl (70-99); Potassium 3.9 mmol/L (3.5-5.1); Sodium 131 mmol/L (135-145); eGFR > 60.00
[2025-05-28 16:02] LABS: Glucose - Point of Care 187 mg/dl (70-99)
--- NOTE | 2025-05-28 16:30 | PTCARENOTE ---
Assessment unchanged. Remains on Insulin gtts with Q1hr accuchecks. BMP Q4hrs. Updated pt and significant other on plan of care. Pt tearful that she won't be going home today to see her son, emotional support given.
[2025-05-28 17:10] LABS: Glucose - Point of Care 178 mg/dl (70-99)
[2025-05-28 18:00] LABS: Glucose - Point of Care 147 mg/dl (70-99)
[2025-05-28 19:03] LABS: Glucose - Point of Care 197 mg/dl (70-99)
[2025-05-28] MEDS: ATIVAN 1 MG IV (19:54)
[2025-05-28 20:05] LABS: Glucose - Point of Care 174 mg/dl (70-99)
[2025-05-28 20:41] LABS: Blood Urea Nitrogen 4 mg/dl (7-17); Calcium 9.2 mg/dl (8.4-10.2); Carbon Dioxide 17 mmol/L (22-30); Chloride 107 mmol/L (98-107); Estimated Creatinine Clearance 97 ml/min; Glucose 173 mg/dl (70-99); Potassium 3.2 mmol/L (3.5-5.1); Sodium 130 mmol/L (135-145); eGFR > 60.00
--- NOTE | 2025-05-28 20:57 | PTCARENOTE ---
Pt states feelings of anxiety, MSAS = 8. PRN ativan given as ordered. pt calm and resting at this time. Initial assessment as documneted. Safe environment maintained, call hook within reach.
[2025-05-28 21:06] LABS: Glucose - Point of Care 151 mg/dl (70-99)
--- NOTE | 2025-05-28 21:55 | PTCARENOTE ---
K = 3.2, insulin gtt placed on hold, K rider ordered.
[2025-05-28 22:10] LABS: Glucose - Point of Care 162 mg/dl (70-99)
[2025-05-28] MEDS: KCL 260 MEQ IV (22:12)
[2025-05-28 23:09] LABS: Glucose - Point of Care 196 mg/dl (70-99)
[2025-05-29] VITALS (11 sets, daily range): BP systolic 94–122; BP diastolic 62–93; BMI 18.1
[2025-05-29 00:01] LABS: Glucose - Point of Care 193 mg/dl (70-99)
[2025-05-29] MEDS: THIAMINE INJECTION 200 MG IV ×2 (00:07→08:10)
[2025-05-29] MEDS: D5/0.45%NSS with KCL 20 MEQ 1000 IV ×2 (00:49→08:16)
[2025-05-29 01:25] LABS: Blood Urea Nitrogen 4 mg/dl (7-17); Calcium 9.1 mg/dl (8.4-10.2); Carbon Dioxide 15 mmol/L (22-30); Chloride 109 mmol/L (98-107); Estimated Creatinine Clearance 97 ml/min; Glucose 183 mg/dl (70-99); Potassium 3.6 mmol/L (3.5-5.1); Sodium 133 mmol/L (135-145); eGFR > 60.00
[2025-05-29 02:04] LABS: Glucose - Point of Care 158 mg/dl (70-99)
[2025-05-29 03:01] LABS: Glucose - Point of Care 179 mg/dl (70-99)
[2025-05-29 04:13] LABS: Glucose - Point of Care 186 mg/dl (70-99)
[2025-05-29 05:09] LABS: Glucose - Point of Care 159 mg/dl (70-99)
[2025-05-29 05:45] LABS: Hematocrit 34.3 % (37.0-47.0); Hemoglobin 11.8 g/dL (12.0-16.0); Mean Corp Hgb Conc. 34.4 g/dL (33.0-37.0); Mean Corpuscular Volume 93.0 fL (81.0-99.0); Nucleated Red Blood Cells % 0 %; Platelet Count 180 10^3/uL (130-400); Red Cell Dist. Width 12.7 % (11.5-14.5)
[2025-05-29 05:51] LABS: Blood Urea Nitrogen 3 mg/dl (7-17); Calcium 9.2 mg/dl (8.4-10.2); Carbon Dioxide 18 mmol/L (22-30); Chloride 111 mmol/L (98-107); Estimated Creatinine Clearance 97 ml/min; Glucose 162 mg/dl (70-99); Potassium 3.3 mmol/L (3.5-5.1); Sodium 133 mmol/L (135-145); eGFR > 60.00
[2025-05-29 06:13] LABS: Glucose - Point of Care 129 mg/dl (70-99)
[2025-05-29] MEDS: KCL 260 MEQ IV (06:35)
[2025-05-29 07:06] LABS: Glucose - Point of Care 140 mg/dl (70-99)
--- NOTE | 2025-05-29 07:38 | W.PN.INTV ---
Today's Communication / Plan
Recommendations
Insulin gtt @ 1, transition to lantus/prandial SQ
Diet advancement
OOB, ambulation
Transfer vs discharge planning per team
Assessment
-
30-year-old female with previous history of diabetes presenting with severe acid reflux which began around 3 AM with nausea and vomiting about every 20 minutes. She was recently diagnosed with diabetes in the last 2 years but has not been compliant
with her care or treatment. She was recently admitted at [facility] for acute pancreatitis. She has complications with access to care regarding medical insurance and she has no employment. In ER, she had notable blood sugar of 344 with high anion
gap metabolic acidosis, she is admitted to ICU for insulin drip.
DKA due to noncompliance
Leukocytosis
Hyponatremia
HAGMA
Hypocalcemia
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
Type I DM
GERD
Asthma
Anxiety
Smoker (Half a pack a day)
Alcohol: Occasional (2-3 times during the week 3 glasses of wine or 3 beers 1 glass of wine or beer Friday and Friday total 11 drinks a week)
Drug: Marijuana (Edible)
Plan
DKA, admitting BS elevated, HAGMA noted
Started on insulin drip, can wean today following protocol, start D5 IVFs
Consult diabetic nurse for insulin recommendations
Will transition to SQ today
Can restart diet once able to bridge
H/o poorly controlled diabetes, hopeful transition to home meds
HbA1c 9.9
Admits triggers include noncompliance, poor access to treatment
May consider [facility] for [facility] referral
Diet transition following DKA protocol
GI ppx: PPI for active GERD complaints
Improving, can continue as OP
Hemodynamically stable, not requiring pressors.
No prior h/o cardiac disease
Monitor on tele
Oxygen needs: Stable on RA
Asthma noted, on albuterol PRN
Smoking hx includes 1/2 PPD, smoking cessation encouraged
Prior CXR negative in past
Creat at baseline, follow UO
Acid/base status: AGMA 2/2 DKA, follow until AG <12
No signs/symptoms suspicious for infectious etiology at this time.
Will observe off antibiotics for now.
Follow fever trend, WBC count.
DVT ppx SCDs
Can transfer to floors when off insulin gtt, we will sign off upon transfer
Diagnostic Data
Chest X-Ray: 02/23/22-No acute cardiopulmonary process.
CT Scan:
Echo:
PFT's:
Reports and relevant images were personally reviewed.
Critical Care time 31 mins -- The patient is admitted for acute critical illness for the treatment of vital organ failure and/or prevention of further life-threatening conditions. Total care includes time spent in review of history, physical exam,
medications, hemodynamic/ventilator parameters, laboratory data, imaging and discussion with house staff, pharmacy, respiratory therapy, clinical consultant, and nursing.
Subjective Dataa
Subjective Data
Date of Service:
Date of Service: May 29, 2025
Chief Complaint: Patient Accounts Clerk Follow Up
Subjective:
no new events ON, wants to go home
stable on RA, not on pressors
on insulin gtt
Objective Data
Data Reviewed
Vital Signs / I&O / Oxygen:
Vital Signs
Temp Pulse Resp BP Pulse Ox
98.8 F 89 15 101/78 100
05/29/25 04:44 05/29/25 06:00 05/29/25 06:00 05/29/25 06:00 05/28/25 15:00
Intake and Output
05/28/25 05/29/25 05/30/25
06:59 06:59 06:59
Intake Total 2189 / 2343 3909 / 3909
Output Total 1900 / 1900
Balance 2189 / 2343 2008
SaO2 100
Physical Exam
General: Comfortable and Other (NAD)
HEENT: Normocephalic, Anicteric and Moist Mucous Membranes
Cardiovascular: S1-S2 and Regular Rhythm
Respiratory: Clear and Non-Labored Respirations
GI: Soft, Non Distended and Non Tender
Neurology: Awake, Alert, Oriented and No Motor Deficits
Skin: Warm, Dry and Good Color
Labs/Micro/Reports
Lab Data
05/29/25 05:08
[2025-05-29] MEDS: NICODERM TRANSDERMAL 14 MG TRANSDERM (08:09)
[2025-05-29] MEDS: NSS (PRESERVATIVE FREE) 10 ML IV (08:09)
[2025-05-29] MEDS: FOLVITE 1 MG PO (08:10)
[2025-05-29] MEDS: PROTONIX IV 40 MG IV (08:10)
[2025-05-29 08:14] LABS: Glucose - Point of Care 132 mg/dl (70-99)
[2025-05-29] MEDS: ATIVAN 1 MG PO (08:18)
--- NOTE | 2025-05-29 08:31 | PTCARENOTE ---
Rec'd pt at 0700. Pt AAOx3, anxious. Pt requesting PRN Ativan, PRN dose given. Monitor SR/ST. Lungs CTA. +BS, abbd soft/nt. OOB to BSC voiding yellow urine. Insulin gtts infusing per protocol with Q1hr accuchecks. Pt updated on plan of care for
today.
[2025-05-29 09:12] LABS: Glucose - Point of Care 149 mg/dl (70-99)
[2025-05-29] MEDS: LANTUS 0.05 UNITS SC (09:32)
[2025-05-29 09:59] LABS: Glucose - Point of Care 177 mg/dl (70-99)
--- NOTE | 2025-05-29 09:59 | CM ---
chart reviewed. tx to floor once insulin gtt off. DCP is to go home no needs anticipated
--- NOTE | 2025-05-29 10:31 | PTCARENOTE ---
0930-5 unit SQ Lantus given. Insulin gtts and IVFs dc'd at 1030. Menu and phone given to pt to order food, instructed to notify RN when tray arrives to check BG prior to eating. Pt verbalized understanding. Assessment unchanged.
[2025-05-29 11:48] LABS: Glucose - Point of Care 225 mg/dl (70-99)
[2025-05-29] MEDS: NOVOLOG FLEXPEN-HIGH RESISTANCE 4 UNITS SC (11:51)
[2025-05-29] MEDS: NOVOLOG FLEXPEN 5 UNITS SC (11:51)
--- NOTE | 2025-05-29 13:17 | CM ---
Chart reviewed Spoke with Montez Gutierrez and patient regarding dc today
Pt does NOT have HP
Spoke with [facility] pharmacy and Dr. Salamanca consulted regarding insulin cost
Pt was given the cost of her insulin Novlin 70/30 and the syringes provided by [facility] from our donors' funds
24.86 and 12 $ with goodrx
Pt is agreeable to go home to get her insulin and take them as ordered
Referral sent to [facility]
CM discussed at length to call [facility] tomorrow to set up an appt with a manager social media.
Pt is grateful and given brochure on [facility]
Jaden her boyfriend would provide transportation
Nurse made aware
No other cm needs at this time
--- NOTE | 2025-05-29 13:52 | PTCARENOTE ---
Discharge instructions reviewed with pt. IVs and monitor wires removed. Pt discharged to home at 1350.
--- NOTE | 2025-05-29 15:01 | W.DCSUMMARY ---
Discharge Summary
Discharge Data
Date of Admission: 05/27/25
Date of Discharge: 05/29/25
-
Pending Results: No
Hospital Course
30 female history of type 1 diabetes, GERD, asthma, anxiety
Presented with DKA secondary to noncomplaince of insulin. Started on insulin drip and intravenous fluids. Anion gap closed. Tolerated diet. Will DC home with Novolin 5u BID. Proived a referral to [facility].
Seen and examined the day of discharge which was 05/29/2025. No new complaints. No acute overnight events.
NAD
Scleral Anicteric
MMM
No JVD
CTABL
RRR, S1/S2
Soft, NT, ND, BS+
Warm, Dry
AAOx3
Calm
More than 30 minutes spent in discharge including
Final examination of the patient
Summarizing hospital stay
Instructions for continuing care to all relevant caregivers
Preparation of discharge records, prescriptions, and referral forms
Total time spent (in minutes): 33mins
Discharge Plan
-
Patient Disposition: Home (Routine Discharge)
Discharge Diagnosis/Procedures: Dka
Condition: Good
Diet: As tolerated
Activity: As tolerated
Activity Restrictions/Additional Instructions:
Presented with DKA secondary to noncomplaince of insulin. Started on insulin drip and intravenous fluids. Anion gap closed. Tolerated diet. Will DC home with Novolin 5u BID. Proived a referral to [facility].
Referrals:
UNKNOWN - PT DOES,NOT KNOW [Family Provider]
Additional Discharge Medication Instructions: Novolin 5u twice a day
Prescriptions:
New
Novolin 70/30 U-100 Insulin 100 unit/mL (70-30) Suspension
5 unit SC BID@0800,1700 Qty: 1 0RF
(DME) insulin syringe-needle U-100 [Insulin Syringe] 1 mL 29 gauge x 1/2' Syringe
Qty: 100 0RF
Rx Instructions:
As Directed
Continued
albuterol sulfate 90 mcg/actuation Hfa Aerosol Inhaler
2 puff INHALATION R BID
ondansetron HCl 4 mg Tablet
4 mg PO Q6HPRN PRN (Reason: nausea) Qty: 10 0RF
Discontinued
insulin asp prt-insulin aspart [Novolog Mix 70-30 U-100 Insuln] 100 unit/mL (70-30) Solution
5 unit SC BID@,17
Discharge Orders:
Discharge Patient (As Directed); Ordered 05/29/25
Ordered By: Montez Salamanca
Discharge Date and Time
Discharge Date/Time: 05/29/25 14:14
Print Language: CYMRAES
== END 2025-05-29 14:14 | disposition home or self-care (01) | DRG 638 ==
LOC: ICU 19:13
PROVIDERS: Clinical Nurse Specialist Family Health; Nurse Practitioner Primary Care; ADMITTING PHYSICIAN Internal Medicine; ATTENDING PHYSICIAN Hospitalist; CONSULT PHYSICIAN Internal Medicine; EMERGENCY PHYSICIAN Emergency Medicine
DX: E10.10 Type 1 diabetes mellitus with ketoacidosis without coma (principal); E87.1 Hypo-osmolality and hyponatremia; K21.9 Gastro-esophageal reflux disease without esophagitis; J45.909 Unspecified asthma, uncomplicated; F41.9 Anxiety disorder, unspecified; E83.51 Hypocalcemia; D72.829 Elevated white blood cell count, unspecified; E86.0 Dehydration; F10.10 Alcohol abuse, uncomplicated; F17.210 Nicotine dependence, cigarettes, uncomplicated; F12.90 Cannabis use, unspecified, uncomplicated; Z59.71 Insufficient health insurance coverage; Z79.4 Long term (current) use of insulin; Z79.899 Other long term (current) drug therapy; Z91.199 Patient's noncompliance with other medical treatment and regimen due to unspecified reason
CPT/HCPCS: 80048; 80053; 80306; 80307; 81003; 81015; 82010; 82077; 82805; 82962; 82977; 83036; 83605; 83690; 83735; 84100; 84703; 85025; 85610; 85730; 87086; 93005; 94640; 96361; 96365; 96366; 96375; 96376; 99291; 99406